=== PATIENT | female | born 1985 | race African-American/Black ===

== ENCOUNTER 2018-12-03 17:56 | Emergency (ER) | payer OTHER ==
[~2018-12-03] VITALS: Ht 167.6 cm; Wt 104.0 kg
[2018-12-03 18:05] VITALS: BP 136/86
== END 2018-12-03 22:20 | disposition left against medical advice (07) ==
LOC: ER 17:56
DX: Z53.21 Procedure and treatment not carried out due to patient leaving prior to being seen by health care provider (principal)

== ENCOUNTER 2023-10-12 21:20 | Emergency (ER) | payer OTHER ==
[~2023-10-12] VITALS: Ht 167.6 cm; Wt 132.0 kg
[2023-10-12 21:44] VITALS: BP 133/88; PULSE 90; RESP 20; TEMP 98.3; O2SAT 100
== END 2023-10-13 00:53 | disposition left against medical advice (07) ==
LOC: ER 21:20
DX: R68.83 Chills (without fever) (principal); Z53.21 Procedure and treatment not carried out due to patient leaving prior to being seen by health care provider
CPT/HCPCS: 99281